=== PATIENT | female | born 1970 | race Caucasian/White ===

== ENCOUNTER 2018-03-03 08:29 | Emergency (ER) | payer SELFPAY ==
[~2018-03-03] VITALS: Ht 167.6 cm; Wt 106.3 kg
[~2018-03-03 08:29] MED LIST: CLEOCIN150 MG PO; MOBIC7.5 MG PO; MOTRIN600 MG PO; NOHOMEMEDS; TRAMADOL HCL50 MG PO; TYLENOL WITH C1 EACH PO
[2018-03-03 09:51] LABS: APPEARANCE SL.HAZY ((CLEAR)); BILIRUBIN NEGATIVE; BLOOD NEGATIVE; COLOR STRAW ((YELLOW)); GLUCOSE (STRIP) NEGATIVE; KETONES NEGATIVE; LEUKOCYTES SMALL; NITRITE NEGATIVE; PROTEIN (STRIP) NEGATIVE; SPECIFIC GRAVITY 1.008 (1.000-1.030); UROBILINOGEN 0.2 MG/DL (0.2-1.0)
[2018-03-03 09:57] LABS: BACTERIA RARE /HPF; EPITHELIAL CELLS 1+ /HPF; MUCUS NONE SEEN /LPF; RED BLOOD CELLS 0-5 /HPF (0-5); UCUL ADDED? YES
[2018-03-03] MEDS ORDERED: TRIAMCINOLONE A15 GM TP (10:01)
[2018-03-03] MEDS ORDERED: KETOCONAZOLE120 ML TP (10:01)
[2018-03-03] MEDS ORDERED: BACTRIM,SEPT1 TABLET PO (10:04)
[2018-03-03] MEDS ORDERED: DIFLUCAN150 MG PO (10:05)
[2018-03-03 10:35] VITALS: BP 132/91
== END 2018-03-03 10:36 | disposition home or self-care (01) ==
LOC: EME 08:29
PROVIDERS: Physician Assistant
DX: L21.9 Seborrheic dermatitis, unspecified (principal); N39.0 Urinary tract infection, site not specified; Z87.440 Personal history of urinary (tract) infections; Z88.0 Allergy status to penicillin; Z88.5 Allergy status to narcotic agent
CPT/HCPCS: 81003; 87086; 99281; 99283